=== PATIENT | female | born 1960 | race Caucasian/White ===

== ENCOUNTER → 2020-02-04 | Outpatient (CLI) | payer BC | LOC: MC.RAD 08:12 | DX: D24.2 Benign neoplasm of left breast (principal); N64.89 Other specified disorders of breast | CPT/HCPCS: G0279 ==

== ENCOUNTER → 2020-08-29 | Outpatient (CLI) | payer BC | LOC: MC.RAD 07:30 | DX: N63.20 Unspecified lump in the left breast, unspecified quadrant (principal) ==

== ENCOUNTER 2022-06-11 12:13 | Inpatient (IN) | payer BC ==
[~2022-06-11] VITALS: Ht 162.6 cm; Wt 58.2 kg
[2022-06-11 14:12] LABS: HEMATOCRIT 40.3 % (37.0-47.0); HEMOGLOBIN 13.7 g/dl (12.5-16.0); MEAN CELL VOLUME 92 fl (80.0-100.0); MEAN CORPUSCULAR HEMOGLOBIN 31 pg (27-31); MEAN CORPUSCULAR HGB CONC 34 g/dl (33.0-37.0); MEAN PLATELET VOLUME 10.2 fl (7.4-10.4); PLATELET COUNT 173 K/mm3 (130-400); RED BLOOD COUNT 4.38 M/mm3 (4.10-5.30); REDCELL DISTRIBUTION WIDTH-CV 12.4 % (11.5-14.5)
[2022-06-11 14:27] LABS: CREATININE, serum 0.72 mg/dL (0.57-1.11); POTASSIUM 3.9 mmol/L (3.5-4.5)
[2022-06-11 15:42] VITALS: BP 129/80; PULSE 90; TEMP 98.7
[2022-06-11 19:18] LABS: URINE APPEARANCE Clear (CLEAR/HAZY); URINE BLOOD TRACE-LYSED (NEGATIVE); URINE COLOR Yellow (YELLOW); URINE GLUCOSE Negative (NEGATIVE); URINE KETONE 2+ (NEGATIVE); URINE NITRATE Negative (NEGATIVE); URINE PROTEIN(semi-quant) Negative (NEGATIVE); URINE UROBILINOGEN 0.2 E.U/dL (0.2-1.0)
[2022-06-11 19:19] LABS: COLLECTION METHOD CLEAN CATCH
[2022-06-11 19:23] LABS: MUCOUS Present (NOT PRESENT); SQUAMOUS EPITHELIAL 0-2 /hpf (0-10); URINE BACTERIA None Seen /hpf (NONE SEEN)
[2022-06-11 19:27] VITALS: BP 107/56; PULSE 71; TEMP 98.5
[2022-06-11 23:22] VITALS: BP 124/67; PULSE 73; TEMP 98.9
[2022-06-12] VITALS (12 sets, daily range): BP systolic 99–122; BP diastolic 56–71; PULSE 72–95; TEMP 98.1–99.3
[2022-06-12 06:59] LABS: BASO % 0.3 % (0.0-2.0); EOS % 0.6 % (0.0-4.0); GRAN # 5.4 K/mm3 (1.4-6.5); GRAN % 80.4 % (42.2-75.2); HEMATOCRIT 40.5 % (37.0-47.0); HEMOGLOBIN 13.4 g/dl (12.5-16.0); LYMPH # 0.8 K/mm3 (1.2-3.4); LYMPH % 11.5 % (20.0-51.0); MEAN CELL VOLUME 95 fl (80.0-100.0); MEAN CORPUSCULAR HEMOGLOBIN 31 pg (27-31); MEAN CORPUSCULAR HGB CONC 33 g/dl (33.0-37.0); MEAN PLATELET VOLUME 10.8 fl (7.4-10.4); MONO # 0.5 K/mm3 (0.1-0.6); MONO % 6.9 % (1.7-9.3); PLATELET COUNT 183 K/mm3 (130-400); RED BLOOD COUNT 4.27 M/mm3 (4.10-5.30); REDCELL DISTRIBUTION WIDTH-CV 12.4 % (11.5-14.5)
[2022-06-12 07:16] LABS: CALCIUM 8.8 mg/dL (8.4-10.2); CREATININE, serum 0.64 mg/dL (0.57-1.11); POTASSIUM 3.9 mmol/L (3.5-4.5)
[2022-06-13 03:54] VITALS: BP 106/64; PULSE 75; TEMP 98.7
[2022-06-13 06:39] LABS: BASO % 0.3 % (0.0-2.0); EOS # 0.1 K/mm3 (0.0-0.7); EOS % 0.8 % (0.0-4.0); GRAN # 5.1 K/mm3 (1.4-6.5); GRAN % 77.3 % (42.2-75.2); HEMOGLOBIN 11.9 g/dl (12.5-16.0); LYMPH # 0.8 K/mm3 (1.2-3.4); LYMPH % 12.1 % (20.0-51.0); MEAN CELL VOLUME 95 fl (80.0-100.0); MEAN CORPUSCULAR HEMOGLOBIN 31 pg (27-31); MEAN CORPUSCULAR HGB CONC 33 g/dl (33.0-37.0); MEAN PLATELET VOLUME 11.2 fl (7.4-10.4); MONO # 0.6 K/mm3 (0.1-0.6); MONO % 9.2 % (1.7-9.3); PLATELET COUNT 143 K/mm3 (130-400); RED BLOOD COUNT 3.81 M/mm3 (4.10-5.30); REDCELL DISTRIBUTION WIDTH-CV 12.4 % (11.5-14.5)
[2022-06-13 06:49] LABS: CALCIUM 8.4 mg/dL (8.4-10.2); CREATININE, serum 0.6 mg/dL (0.57-1.11); POTASSIUM 4.1 mmol/L (3.5-4.5)
[2022-06-13 06:50] LABS: HEMATOCRIT 36.1 % (37.0-47.0)
[2022-06-13 07:18] VITALS: BP 113/57; PULSE 80; TEMP 98.6
[2022-06-13 10:45] VITALS: BP 119/61; PULSE 97; TEMP 99
[2022-06-13 16:00] VITALS: BP 124/74; PULSE 86; TEMP 98.7
[2022-06-13 20:45] VITALS: BP 102/50; PULSE 107; TEMP 99
[2022-06-13 21:00] VITALS: TEMP 100.2
[2022-06-14 00:17] VITALS: BP 114/52; PULSE 78; TEMP 99.6
[2022-06-14 04:44] VITALS: BP 115/52; PULSE 101; TEMP 99.3
[2022-06-14 07:30] VITALS: BP 100/47; PULSE 102; TEMP 99.4
[2022-06-14 12:05] VITALS: BP 109/52; PULSE 99; TEMP 98.6
== END 2022-06-14 13:01 | disposition home health service (06) | DRG 522 ==
LOC: COL.ER 12:13 → SURG 14:27
PROVIDERS: Emergency Medicine; Hospitalist; Orthopaedic Surgery; ADMIT Student in an Organized Health Care Education/Training Program
PROC: 0SRB0JZ Replacement of Left Hip Joint with Synthetic Substitute, Open Approach (ICD-10-PCS; principal; 2022-06-12 14:00)
DX: S72.092A Other fracture of head and neck of left femur, initial encounter for closed fracture (principal); W01.0XXA Fall on same level from slipping, tripping and stumbling without subsequent striking against object, initial encounter; F10.90 Alcohol use, unspecified, uncomplicated; Y93.01 Activity, walking, marching and hiking; Y92.89 Other specified places as the place of occurrence of the external cause; Z90.49 Acquired absence of other specified parts of digestive tract; Z53.29 Procedure and treatment not carried out because of patient's decision for other reasons
CPT/HCPCS: A9284; C1713; C1776; J0690; J1885; J2250; J2270; J2370; J2704; J7120